=== PATIENT | female | born 1980 | race African-American/Black ===

== ENCOUNTER → 2016-11-09 | Day surgery (SDC) | payer OTHER ==
[~2016-11-09] MED LIST: AUGM875T PO; KETOROLAC TROMETHAMINE 30 MG/ML (IVP) VIAL IV PUSH ONE; LACTATED RINGER'S 1000 ML INJ 1,000 ML ONE; ONDANSETRON HCL 4 MG/2 ML VIAL IV PUSH ONE; PROPOFOL 200 MG/20 ML AMP IV ONE; ceFAZolin 2 GM PREMIX 50 ML ONE
--- NOTE | 2016-11-12 17:35 | MP ---
cc: JOHNSON COTA DATE OF SURGERY 11/09/2016 PREOPERATIVE DIAGNOSIS Patient with uterine fibroids, history of menometrorrhagia, intrauterine device in place. PROCEDURE 1. Removal of intrauterine device, 2. Diagnostic hysteroscopy with operative hysteroscopy 3. Simple myomectomy of anterior uterine myoma. POSTOPERATIVE DIAGNOSIS Patient with uterine fibroids, history of menometrorrhagia, intrauterine device in place. SURGEON Dennis Cota MD ANESTHESIA General with LMA ESTIMATED BLOOD LOSS Minimal. INSTILLATION FLUID 1.5% glycine 3800 mL was instilled and 3800 mL was retrieved. OPERATIVE FINDINGS The patient had an enlarged retroverted uterus with a large midline centrally located myoma that measured 4+ centimeters across and it was mid position of the anterior uterine wall. The remainder of the cavity was free of any focal abnormality. Cervix is normal size and shape. Pathology included myometrial resection of the anterior myoma. INDICATIONS FOR PROCEDURE Patient with recurrent heavy menstrual bleeding despite use of oral contraceptives intrauterine device. The patient was counseled to her options and elected for conservative management with operative hysteroscopy and hysteroscopic resection with myomectomy. DESCRIPTION OF PROCEDURE The patient was taken to the operating room under general anesthesia, had an airway secured. She was given Ancef 2 grams prophylactically. She was placed in dorsolithotomy position using candy-cane stirrups with sequentials placed on lower extremities. She had appropriate padding for comfort. The patient was in stable condition. Time-out was conducted and agreed by all present in the room. The patient had sequentials placed on lower extremities for VTE prophylaxis as well. The patient was examined. The findings were described above. The cervix is easily visualized by simple weighted speculum. Cervix is secured with a single-tooth tenaculum. Uterine sound was placed in the mid position slightly posterior to about 10 cm. The cervix was then dilated to accommodate a 5 mm rigid hysteroscope which was diagnostic of the findings stated above. Conversion to the operative resectoscope was used. The Vapor trode device was attached. Generator was set at 70 cutting 70 coag and simple shaving of the myoma to the base of the endometrium was accomplished. Tissue was sent in formalin. The base of the resection was then cauterized using the rollerball attachment to the resectoscope. Excellent result was noted. There was no complication. No perforation. No intravasation of fluid was documented. The patient remained stable throughout. At the end of the case, she had no active bleeding. She was taken to recovery room extubated on room air. Final count was correct. MD AIDE Luna/ /5:08 PM /5:21 PM
== END | disposition home or self-care (01) ==
LOC: ESDC 07:02
PROVIDERS: ATTEND Obstetrics & Gynecology
DX: D25.9 Leiomyoma of uterus, unspecified (principal); N92.1 Excessive and frequent menstruation with irregular cycle; Z30.432 Encounter for removal of intrauterine contraceptive device
CPT/HCPCS: 00940; 00952; 58301; 58561; 88300; 88305; J0690; J1885; J2405; J3010; J7120

== ENCOUNTER → 2017-11-16 | Day surgery (SDC) | payer BC ==
[~2017-11-16] VITALS: Ht 162.6 cm; Wt 89.8 kg
[~2017-11-16] MED LIST changes: +*morphine SULFATE 4 MG/ML PERIprocedure ONLY ONE; +ACETAMINOPHEN 1000 MG/100 ML 100 ML IV ONE; -AUGM875T PO; +CHLORHEXIDINE GLUCONATE 2 % 1 PACK (2 CLOTHS) TOPICAL PRN; +DEXAMETHASONE SOD PHOS 4 MG/ML VIAL IV ONE; +DO NOT ADM ANY ANTICOAGULANT DRUGS PRN; +HYDROmorphone HCL PF 2 MG/ML VIAL IV PUSH PRN; +IBUPROFEN 600 MG TAB PO PRN; +INSULIN HUMAN REGULAR 1,000 UNITS/10 ML VIAL SQ PRN; +KETOROLAC TROMETHAMINE 30 MG/ML (IVP) VIAL IVP PRN; +LACTATED RINGER'S 1000 ML INJ 1,000 ML IV ONE; +LACTATED RINGER'S 1000 ML INJ 1,000 ML IV SCH; -LACTATED RINGER'S 1000 ML INJ 1,000 ML ONE; +LACTATED RINGER'S 1000 ML IV PRN; +LIDOCAINE HCL 1% PF 5 ML SYRINGE OTHER ONE; +METOPROLOL TARTRATE 25 MG TAB PO PRN; +MIDAZOLAM HCL 2 MG/2 ML VIAL ONE; +ONDANSETRON HCL 4 MG/2 ML VIAL IV ONE; -ONDANSETRON HCL 4 MG/2 ML VIAL IV PUSH ONE; +ONDANSETRON HCL 4 MG/2 ML VIAL IVP PRN; +POVIDONE IODINE 5% (ANTISEPSIS KIT) 4 APPLICATIONS EACH NARE PRN; +PROMETHAZINE INJ 25 MG/ML VIAL IM PRN; +SODIUM CHLORID 0.9% 500 ML IV PRN; +SODIUM CHLORIDE 0.9% FLUSH 10 ML FLUSH IV FLUSH PRN; +SODIUM CHLORIDE 0.9% FLUSH 10 ML FLUSH IV FLUSH SCH; +ceFAZolin 2 GM PREMIX 50 ML IV SCH; -ceFAZolin 2 GM PREMIX 50 ML ONE; +diphenhydrAMINE HCL 25 MG CAP PO PRN; +oxyCODONE/ACETAMINOPHEN 5 MG/325 MG TAB PO PRN
--- NOTE | 2017-11-16 11:56 | MP ---
cc: BRUCE PINO M.D., MOHAN L. MD DATE OF SURGERY 11/16/2017 PREOPERATIVE DIAGNOSIS 1. Symptomatic uterine fibroids. 2. Menometrorrhagia. PROCEDURE Exam under anesthesia, hysteroscopy with curettage of the endometrial cavity and NovaSure endometrial ablation. POSTOPERATIVE DIAGNOSIS 1. Symptomatic uterine fibroids. 2. Menometrorrhagia. SURGEON Alvarez. ANESTHESIA General with LMA. ESTIMATED BLOOD LOSS 50 cc. DRAINS None. SPECIMEN Endometrial biopsy was obtained for pathology. OPERATIVE FINDINGS The patient had normal-appearing cervix, well-supported. The uterine cavity was enlarged. Uterus sounded to 12 cm with the upper width measuring 4.5 cm. The cavity itself was symmetrical, vascular in appearance with no focal mass, no polyp, no submucosal fibroid, no perforation, no focal abnormality. INDICATION FOR PROCEDURE Patient with known history of fibroids with symptomatic menorrhagia over several years. Recently she has had significant increase in the menorrhagia despite use of oral contraceptives for controlling her bleeding. Recommendation was to proceed with diagnostic hysteroscopy and attempt at endometrial ablation with the NovaSure. The patient received Ancef 2 grams prophylactically. DETAILS OF PROCEDURE The patient was taken to the operating room in stable condition, underwent general anesthesia with LMA placement. She was carefully positioned in dorsal lithotomy position using candy-cane stirrups on the lower extremities. She had sequentials placed on the lower extremities for VTE prophylaxis. After she was prepped and draped a timeout was conducted and agreed by all present in the room. Examination revealed findings stated above. A simple bivalve retractor was then used to examine the cervix which was normal in appearance. The external os was small. There was a small amount of blood at the os. The cervix was secured with a single-tooth tenaculum and then a uterine sound was placed gently in anteverted fashion to the fundus measuring 12 cm. The cervix was then dilated to accommodate a rigid hysteroscope using a 0-degree lens and normal saline as a distention media. Examination of the cavity proved nonspecific and at that point curettage of the surface was obtained and tissue specimens sent as permanent section. The NovaSure device was then utilized. Measurements were set at 6.5 and 4.5, generated a wattage of 164 potter. The device initiated electrodesiccation without complication. Re-examination of the cavity proved partially ablated in the lower uterine segment. The fundus did not appear to be ablated. A second attempt at insertion of the NovaSure device did not pass through its cavity assessment and at that point the NovaSure procedure was terminated. Re-examination of the cavity was uncomplicated. There was no perforation. There was not any significant bleeding noted. At the completion of the case the final count was correct. The patient was stable. She was taken to the recovery room on room air. Bruce Pino MD SJMaegan/BT /11:12 AM /11:41 AM
[2017-11-16 13:22] VITALS: BP 124/67; PULSE 70; RESP 16; TEMP 97.3; O2SAT 97
== END | disposition home or self-care (01) ==
LOC: HSDC 07:51
PROVIDERS: ATTEND Obstetrics & Gynecology
DX: D25.1 Intramural leiomyoma of uterus (principal); N92.0 Excessive and frequent menstruation with regular cycle
CPT/HCPCS: 00952; 58563; 84703; 88305; J1885; J2250; J2270; J3010; J7120; J0131; J1100; J2405

== ENCOUNTER → 2018-01-17 | Outpatient (CLI) | payer BC ==
[~2018-01-17] MED LIST changes: -*morphine SULFATE 4 MG/ML PERIprocedure ONLY ONE; -ACETAMINOPHEN 1000 MG/100 ML 100 ML IV ONE; -CHLORHEXIDINE GLUCONATE 2 % 1 PACK (2 CLOTHS) TOPICAL PRN; +DESOTAB7 PO; -DEXAMETHASONE SOD PHOS 4 MG/ML VIAL IV ONE; -DO NOT ADM ANY ANTICOAGULANT DRUGS PRN; -HYDROmorphone HCL PF 2 MG/ML VIAL IV PUSH PRN; -IBUPROFEN 600 MG TAB PO PRN; -INSULIN HUMAN REGULAR 1,000 UNITS/10 ML VIAL SQ PRN; -KETOROLAC TROMETHAMINE 30 MG/ML (IVP) VIAL IV PUSH ONE; -KETOROLAC TROMETHAMINE 30 MG/ML (IVP) VIAL IVP PRN; -LACTATED RINGER'S 1000 ML INJ 1,000 ML IV ONE; -LACTATED RINGER'S 1000 ML INJ 1,000 ML IV SCH; -LACTATED RINGER'S 1000 ML IV PRN; -LIDOCAINE HCL 1% PF 5 ML SYRINGE OTHER ONE; +MEDR10TA7 PO; -METOPROLOL TARTRATE 25 MG TAB PO PRN; -MIDAZOLAM HCL 2 MG/2 ML VIAL ONE; -ONDANSETRON HCL 4 MG/2 ML VIAL IV ONE; -ONDANSETRON HCL 4 MG/2 ML VIAL IVP PRN; -POVIDONE IODINE 5% (ANTISEPSIS KIT) 4 APPLICATIONS EACH NARE PRN; -PROMETHAZINE INJ 25 MG/ML VIAL IM PRN; -PROPOFOL 200 MG/20 ML AMP IV ONE; -SODIUM CHLORID 0.9% 500 ML IV PRN; -SODIUM CHLORIDE 0.9% FLUSH 10 ML FLUSH IV FLUSH PRN; -SODIUM CHLORIDE 0.9% FLUSH 10 ML FLUSH IV FLUSH SCH; -ceFAZolin 2 GM PREMIX 50 ML IV SCH; -diphenhydrAMINE HCL 25 MG CAP PO PRN; -oxyCODONE/ACETAMINOPHEN 5 MG/325 MG TAB PO PRN
== END ==
LOC: CPRE 11:30
PROVIDERS: ATTEND Obstetrics & Gynecology
DX: Z00.00 Encounter for general adult medical examination without abnormal findings (principal)

== ENCOUNTER → 2018-01-25 | Day surgery (SDC) | payer BC ==
[~2018-01-25] VITALS: Ht 162.6 cm; Wt 90.3 kg
[~2018-01-25] MED LIST changes: +*morphine SULFATE 8 MG/ML PERIprocedure ONLY ONE; +ACETAMINOPHEN 1000 MG/100 ML 100 ML IV ONE; +APREPITANT 40 MG CAP PO ONE; +BUPIVACAINE HCL PF 0.25% 30 ML VIAL ONE; +CHLORHEXIDINE GLUCONATE 2 % 1 PACK (2 CLOTHS) TOPICAL PRN; +DEXAMETHASONE SOD PHOS 4 MG/ML VIAL IV ONE; +DO NOT ADM ANY ANTICOAGULANT DRUGS PRN; +FAMOTIDINE 20 MG/2 ML VIAL ONE; +GLYCOPYRROLATE 1 MG/5 ML SYRINGE IV PUSH ONE; +HYDROmorphone HCL PF 2 MG/ML VIAL IV PRN; +IBUPROFEN 600 MG TAB PO PRN; +KETOROLAC TROMETHAMINE 30 MG/ML (IVP) VIAL IVP PRN; +LACTATED RINGER'S 1000 ML INJ 1,000 ML IV SCH; +LACTATED RINGER'S 1000 ML IV PRN; +LIDOCAINE HCL 1% PF 5 ML SYRINGE OTHER ONE; +LORazepam 0.5 MG TAB PO PRN; +METOPROLOL TARTRATE 25 MG TAB PO PRN; +MIDAZOLAM HCL 2 MG/2 ML VIAL ONE; +NEOSTIGMINE 5 MG/5 ML SYRINGE IV PUSH ONE; +ONDANSETRON HCL 4 MG/2 ML VIAL IV ONE; +ONDANSETRON HCL 4 MG/2 ML VIAL IVP PRN; +PILL SPLITTER OTHER PRN; +POVIDONE IODINE 5% (ANTISEPSIS KIT) 4 APPLICATIONS EACH NARE PRN; +PROPOFOL 200 MG/20 ML AMP IV ONE; +ROCURONIUM INJ 50 MG/5 ML SYRINGE IV PUSH ONE; +SODIUM CHLORID 0.9% 500 ML IV PRN; +SODIUM CHLORIDE 0.9% FLUSH 10 ML FLUSH IV FLUSH PRN; +SODIUM CHLORIDE 0.9% FLUSH 10 ML FLUSH IV FLUSH SCH; +ceFAZolin 2 GM/DEX PREMIX 50 ML IV SCH; +diphenhydrAMINE HCL 25 MG CAP PO PRN; +oxyCODONE/ACETAMINOPHEN 5 MG/325 MG TAB PO PRN
--- NOTE | 2018-01-25 12:10 | MP ---
cc: Bruce Pino MD DATE OF OPERATION: 01/25/2018 PREOPERATIVE DIAGNOSIS: Patient with a large symptomatic uterine fibroids, menorrhagia and chronic anemia due to heavy menstrual bleeding. PROCEDURE PERFORMED: Exam under anesthesia, operative laparoscopy with robotic assist total laparoscopic hysterectomy, right salpingectomy and left salpingo-oophorectomy. ANESTHESIA: General with endotracheal intubation. ESTIMATED BLOOD LOSS: 75 mL. DRAINS: Baird to gravity. SURGICAL SPECIMENS: Included uterus complete with cervix, right fallopian tube, left fallopian tube with ovary. OPERATIVE FINDINGS: The patient had a large multilobulated uterus and a known history of fibroids. The patient's left ovary was adherent to the uterus with a very long infundibulopelvic pedicle. Decision was to remove the ovary at the time. The patient had previously been consented and counseled to the possibility of either a unilateral or bilateral oophorectomy pending intraoperative findings. The right ovary was normal size and shape and uncomplicated. Both ureters were peristalsing normally. They were not involved in the dissection and bladder was intact. PROCEDURE: The patient was taken to the operating room. She underwent general anesthesia with endotracheal intubation. She had received 2 grams of Ancef prophylactically as an antibiotic. After she underwent general anesthesia with intubation, she was prepped and draped. She was placed in dorsal lithotomy position using Luis Alfredo stirrups on the lower extremities and she had sequential's placed on the lower extremities for VTE prophylaxis. Time-out was conducted and agreed by all present in the room. Baird catheter was inserted by sterile technique and a large VCare manipulator was then inserted through the cervical os without difficulty. Gloves were changed. The abdomen was examined. She had a previous Pfannenstiel incision and laparoscopic port site incisions. The umbilical port site was chosen first. A 5 mm trocar was placed under direct vision into the peritoneal cavity without complication. The insufflation at low pressure was about 2 liters of carbon dioxide. The patient was then placed in steep Trendelenburg positioning and then examination of the pelvic anatomy was described above. Accessory ports were then placed using 8 mm trocars on the flanks, one was placed on the left and 2 on the right. The large uterine volume necessitated placement of the camera port above the umbilicus. This was placed about 8 cm above the umbilicus. This was inserted under direct vision. All incision sites were injected with 0.25% plain Marcaine, approximately 2-3 mL at each site. Once the trocar sites were placed, the visualization was excellent. The POS on [employer] patient cart was side-docked. The #2 arm was placed on the patient's left side, the 1 and the 3 on the right. A 30-degree lens was utilized due to the large size of the uterus for better visualization of the lower uterine segment. The #2 arm had a monopolar scissor attached and the #1 arm had a bipolar fenestrated grasper and then #3 arm had an atraumatic bowel grasper placed. Good visualization was noted. There was no collision with the arms. Good articulation was noted. Attention was then directed to the surgeon's cart where confirmation of the mobility of the operative arms, again with good placement and no collisions were noted. Identification of the adjacent vital structures anatomically was made bladder, ureters, and bowel. The dissection initiated by opening the round ligaments bilaterally and then taking down the broad ligament anteriorly allowing the bladder to fall away from the lower uterine segment. Any active bleeding was either cauterized with monopolar or bipolar energy. The dissection of the uterine artery and vein on the right was meticulous due to this excessive large volume of the fibroids. Careful attention was placed to reduce any bleeding. The complex of veins were made hemostatic using the bipolar grasper. Once the pedicle was secured, the pedicle was cut. Dissection of the ovary away from the uterus, ligating the uteroovarian pedicle was made previously, as well as the fallopian tube from its mesentery in a hemostatic fashion to allow removal of the fallopian tube intact with the uterus. The ovary was left in the dependent position. The ureter was easily visualized and peristalsing unencumbered or interrupted. The contralateral side was then dissected. Again, attention was directed to the sidewall where the left ovary was complex to the uterus. The infundibulopelvic vessels were skeletonized, identifying the ureter well out of the way of the pedicle and then ligating the pedicle in a hemostatic fashion. Again, dissection of the uterine artery and vein on the left side was accomplished in the same fashion. Once this was secured and hemostasis was noted, the posterior colpotomy was made and then the anterior vaginal cuff was left intact to allow dissection of the uterus. Due to its large volume, it required bivalving to allow removal through the vaginal opening. Once this was accomplished, the remainder of the anterior colpotomy was complete and the uterine mass along with the left tube and ovary and right tube were removed in a sequential fashion through the vaginal opening by the assistant community manager. All tissue was labeled appropriately and sent in formalin. The vaginal cuff was then closed after introducing a #1 Stratafix suture through the vaginal opening by the assistant community manager. The cuff closure was made without difficulty. The integrity of the cuff closure was tested by a sponge-stick placed by the assistant community manager again with good closure on tension. No active bleeding or hematoma, again, was noted. At this point, the suture needle was trimmed flush with the peritoneum and secured. The [employer] patient cart was undocked. Straight laparoscopy was utilized. The suture needle was retrieved. Copious irrigation was used to clean out any soha or tissue fragments. Examination of the upper quadrants was complete. Irrigation of the complete abdomen placing the patient both in Trendelenburg and reverse Trendelenburg to retrieve any fluid or tissue fragments. Again, observation of the pelvis without pressure was dry. Good hemostasis was noted. Both ureters were peristalsing clear urine into the bladder without difficulty. At this point, the camera port placed above the umbilicus was closed with a Crossbow device with a #1 Vicryl suture. The pneumoperitoneum was then decompressed and the incision sites were closed after removing all trocars with a subcuticular stitch of 4-0 Monocryl. Steri-Strips and Band-Aids were placed over the incision. At the completion of the case, the patient was stable. She was extubated and taken to the recovery room on room air. Bruce Pino MD SJMaegan/EN , 11:23 AM , 12:09 PM
[2018-01-25 13:44] VITALS: BP 107/68; PULSE 74; RESP 18; TEMP 98; O2SAT 98
== END | disposition home or self-care (01) ==
LOC: HSDC 05:45
PROVIDERS: ATTEND Obstetrics & Gynecology
DX: D25.9 Leiomyoma of uterus, unspecified (principal); D27.1 Benign neoplasm of left ovary; N92.0 Excessive and frequent menstruation with regular cycle; D50.0 Iron deficiency anemia secondary to blood loss (chronic)
CPT/HCPCS: 00840; 58552; 86850; 86900; 86901; 88307; J0131; J1100; J1885; J2250; J2270; J2405; J2710; J3010; J7120; J8501